=== PATIENT | female | born 2005 | race Caucasian/White ===

== ENCOUNTER 2025-04-29 11:01 | Emergency (ER) | payer OTHER | END 2025-04-29 12:36 | disposition home or self-care (01) | LOC: MADERS 11:01 | DX: O99.612 Diseases of the digestive system complicating pregnancy, second trimester (principal); K04.7 Periapical abscess without sinus; Z3A.23 23 weeks gestation of pregnancy; Z87.891 Personal history of nicotine dependence | CPT/HCPCS: 99282 ==